=== PATIENT | female | born 1990 | race African-American/Black ===

== ENCOUNTER 2017-10-14 09:21 | Emergency (ER) | payer MEDICAID, SELFPAY ==
--- NOTE | 2017-10-14 11:23 | RAD ---
TWO VIEW CHEST SERIES: COMPARISON: 11/01/11. CLINICAL HISTORY: Cough. FINDINGS: There is no evidence of consolidation. No discrete pneumothorax. Cardiac silhouette is normal in si ze. IMPRESSION: No focal consolidation. POS: [facility]
== END 2017-10-14 10:22 | disposition home or self-care (01) ==
LOC: ERS 09:21
DX: J06.9 Acute upper respiratory infection, unspecified (principal); I10 Essential (primary) hypertension; E03.9 Hypothyroidism, unspecified; D64.9 Anemia, unspecified; Z79.899 Other long term (current) drug therapy
CPT/HCPCS: 71046

== ENCOUNTER 2018-07-12 23:34 | Emergency (ER) | payer MEDICAID, SELFPAY ==
--- NOTE | 2018-07-13 07:58 | RAD ---
LEFT KNEE 4 VIEWS: History Left knee pain. FINDINGS/IMPRESSION: There are postop changes in the proximal tibia. No fracture, dislocation, or bony destruction is miguel ntified. POS: [facility]
== END 2018-07-13 01:09 | disposition home or self-care (01) ==
LOC: ERS 23:34
DX: M25.562 Pain in left knee (principal); D64.9 Anemia, unspecified; E03.9 Hypothyroidism, unspecified; I10 Essential (primary) hypertension

== ENCOUNTER 2019-03-24 20:31 | Emergency (ER) | payer SELFPAY ==
[2019-03-24] MEDS ORDERED: Bicillin LA 1.2 MILLION UNITS/2 ML SYRINGE ONE (21:50)
[2019-03-24] MEDS ORDERED: Acetaminophen 500 MG TAB ONE (21:50)
== END 2019-03-24 22:00 | disposition home or self-care (01) ==
LOC: ERS 20:31
DX: J02.9 Acute pharyngitis, unspecified (principal); D64.9 Anemia, unspecified; E03.9 Hypothyroidism, unspecified; I10 Essential (primary) hypertension; Z79.899 Other long term (current) drug therapy
CPT/HCPCS: 87081; 87430; 96372; J0561

== ENCOUNTER 2019-04-02 18:00 | Emergency (ER) | payer SELFPAY ==
[2019-04-02] MEDS ORDERED: Ketorolac Tromethamine 60 MG/2 ML VIAL ONE (18:22)
== END 2019-04-02 18:44 | disposition home or self-care (01) ==
LOC: ERS 18:00
DX: K04.7 Periapical abscess without sinus (principal); E03.9 Hypothyroidism, unspecified; I10 Essential (primary) hypertension; D64.9 Anemia, unspecified; Z79.899 Other long term (current) drug therapy
CPT/HCPCS: 96372; J1885

== ENCOUNTER 2019-04-27 13:59 | Emergency (ER) | payer SELFPAY ==
[2019-04-27] MEDS ORDERED: Mag-Al 1200 mg/1200 mg/30 ML UDCUP ONE (14:42)
[2019-04-27] MEDS ORDERED: Lidocaine Viscous Sol 2% 15 ml UD Cup ONE (14:42)
[2019-04-27 15:06] LABS: Hemoglobin 10.7 g/dL (12.0-16.0); Mean Corpuscular HGB CONC 29.8 g/dL (32.0-36.0); Mean Corpuscular Hemoglobin 21.1 pg (27.0-31.0); Mean Corpuscular Volume 70.6 fL (78.0-98.0); Platelet Count 320 thou/uL (130-400); RBC Distribution Width 17.7 % (11.5-14.5); Red Blood Cell (RBC) Count 5.06 mill/uL (4.20-5.40); White Blood Cell (WBC) Count 9.9 thou/uL (4.8-10.8)
[2019-04-27 15:19] LABS: BHCG - Serum Negative (NEGATIVE); Pregs Control Background? CLEAR/WHITE (CLR/WHITE); Pregs Control Bar Appear? YES (CONTROL BAR)
[2019-04-27 15:22] LABS: ALT (SGPT) 13 U/L (8-55); AST (SGOT) 12 U/L (5-34); Albumin 3.8 g/dL (3.5-5.0); Alkaline Phosphatase 62 U/L (40-150); Anion Gap 10 mmol/L (10-20); BUN (Urea Nitrogen) 9 mg/dL (7.0-18.7); Bilirubin, Total 0.8 mg/dL (0.2-1.2); Calc. Creatinine Clearance 0 mL/min (70-130); Calcium 9.4 mg/dL (7.8-10.44); Carbon Dioxide 28 mmol/L (22-29); Chloride 104 mmol/L (98-107); Estimated GFR-MDRD Greater than 90; Globulin 4.1 g/dL (2.4-3.5); Glucose 85 mg/dL (70-105); Lipase 18 U/L (8-78); Potassium 3.4 mmol/L (3.5-5.1); Protein, Total 7.9 g/dL (6.0-8.3); Sodium 139 mmol/L (136-145)
[2019-04-27 15:27] LABS: #Eosinphils 0.1 thou/uL (0.0-0.7); #Lymphocytes 2.4 thou/uL (1.20-3.40); #Monocytes 0.8 thou/uL (0.11-0.59); #Neutrophils 6.5 thou/uL (1.40-6.50); %Basophils 0.4 % (0.0-1.0); %Eosinophils 1.5 % (0.0-10.0); %Lymphocytes 24.1 % (21.0-51.0); %Monocytes 8.3 % (0.0-10.0); %Neutrophils 65.7 % (42.0-75.0); Anisocytosis SLIGHT = 6-15 cells (100X) (0-5/hpf); Hypochromia SLIGHT = 6-15 cells (100X) (0-5/hpf); MDiff Complete? YES; Microcytosis SLIGHT = 6-15 cells (100X) (0-5/hpf); Platelet Morphology Comment Appears Adequate
[2019-04-27 16:47] LABS: Bilirubin Negative (Negative); Blood, Urine 3+ (Negative); Clarity Turbid (Clear); Glucose, Urine (Dipstick) Normal (Negative); Leukocyte 75 Leu/uL (Negative); Nitrite Negative (Negative); Protein, Urine (Dipstick) 30 mg/dL (Neg-Trace); RBC/HPF Greater than 50 HPF (0-3)
[2019-04-27 16:56] LABS: Bacteria/HPF 2+ HPF (None Seen)
== END 2019-04-27 16:17 | disposition home or self-care (01) ==
LOC: ERS 13:59
DX: K20.9 Esophagitis, unspecified (principal); D64.9 Anemia, unspecified; E03.9 Hypothyroidism, unspecified; I10 Essential (primary) hypertension; Z79.899 Other long term (current) drug therapy
CPT/HCPCS: 36415; 80053; 81003; 81015; 83690; 84703; 85025; 87077; 87086; 99284

== ENCOUNTER 2019-09-10 13:13 | Outpatient (CLI) | payer MEDICAID ==
--- NOTE | 2019-09-10 13:53 | RAD ---
EXAM: Chest 2 views: HISTORY: Dyspnea COMPARISON: 10/14/2017 FINDINGS: There is a normal-sized cardiomediastinal silhouette. There is no evidence of consolidation, mass, or pleural effusion. The bones are unremarkable. IMPRESSION: No evidence of acute cardiopulmonary disease
== END 2019-09-10 13:14 | disposition home or self-care (01) ==
LOC: BICRAD 13:13
PROVIDERS: ATTEND Internal Medicine
DX: R06.00 Dyspnea, unspecified (principal)
CPT/HCPCS: 71046

== ENCOUNTER 2019-10-28 15:04 | Outpatient (CLI) | payer OTHER ==
--- NOTE | 2019-10-28 15:21 | RAD ---
CHEST 2 VIEWS: Date: 10/28/2019 HISTORY: Dyspnea. COMPARISON: 09/10/2019. FINDINGS: Exam is somewhat limited by very large body habitus. Heart size is normal. The lungs are clear. IMPRESSION: No significant acute intrathoracic disease. Stable from prior study. POS: [facility]
== END 2019-10-28 15:05 | disposition home or self-care (01) ==
LOC: RAD 15:04
PROVIDERS: ATTEND Internal Medicine Pulmonary Disease
DX: R06.00 Dyspnea, unspecified (principal)
CPT/HCPCS: 71046

== ENCOUNTER 2020-04-29 06:18 | Outpatient (CLI) | payer OTHER ==
[2020-05-01 11:45] LABS: SARS-CoV-2 MS2 Positive; SARS-CoV-2 N Gene Negative; SARS-CoV-2 S Gene Negative; SARS-CoV-2 orf1ab Negative
== END 2020-04-29 06:19 | disposition home or self-care (01) ==
LOC: LABBT 06:18
PROVIDERS: ATTEND Internal Medicine
DX: Z01.812 Encounter for preprocedural laboratory examination (principal); Z11.59 Encounter for screening for other viral diseases; E66.01 Morbid (severe) obesity due to excess calories; K21.0 Gastro-esophageal reflux disease with esophagitis; D64.9 Anemia, unspecified
CPT/HCPCS: 87635; U0003

== ENCOUNTER 2020-05-04 08:05 | Day surgery (SDC) | payer OTHER ==
[2020-04-27 11:37] VITALS: BMI 84.1
[2020-05-04] MEDS ORDERED: Lidocaine 1% PF 5 ML VIAL ONE (09:55)
[2020-05-04] MEDS ORDERED: PROPOFOL 200 MG/20 ML VIAL ONE (09:55)
--- NOTE | 2020-05-04 11:41 | OP ---
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 PROCEDURE: Esophagogastroduodenoscopy, diagnostic. INDICATIONS: 1. Gastroesophageal reflux disease, mild. 2. Morbid obesity. 3. Chronic anemia. 4. Preoperative assessment prior to planned bariatric surgery. MEDICATIONS: See Anesthesia record. FINDINGS: After discussion of the risks, benefits, and alternatives of the procedure, informed consent was obtained and witnessed. Pre-endoscopic cardiopulmonary examination was satisfactory. Time-out was performed before sedation was achieved. Sedation was achieved with Anesthesia assistance in the endoscopy unit. A Pentax adult upper endoscope was placed into the oropharynx and passed through the cricopharyngeus under direct visualization. The esophageal mucosa appeared normal throughout with a normal-appearing Z-line at 38 cm from the incisors. The endoscope was advanced into the stomach. Forward and retroflexed views of the entire gastric mucosa were obtained. The gastric mucosa appeared normal throughout in forward and retroflexed views. The endoscope was advanced through the pylorus and into the first and second portions of the duodenum, which also appeared normal. The upper endoscope was then completely withdrawn and the patient allowed to recover. The patient tolerated the procedure well. There were no immediate postprocedure complications. IMPRESSION: 1. Normal esophagogastroduodenoscopy. 2. Regular Z-line at 38 cm from the incisors. RECOMMENDATIONS: 1. Follow up with Dr. Hardin and with [facility], as already planned. 2. She can follow up with me in the GI Clinic as needed. Job ID: [id number]
== END 2020-05-04 11:30 | disposition home or self-care (01) ==
LOC: SDC 08:05
PROVIDERS: ATTEND Internal Medicine
PROC: 0DJ08ZZ Inspection of Upper Intestinal Tract, Via Natural or Artificial Opening Endoscopic (ICD-10-PCS; principal; 2020-05-04)
DX: E66.01 Morbid (severe) obesity due to excess calories (principal); K21.9 Gastro-esophageal reflux disease without esophagitis; D64.9 Anemia, unspecified; I10 Essential (primary) hypertension; E07.9 Disorder of thyroid, unspecified; Z68.45 Body mass index [BMI] 70 or greater, adult; Z79.899 Other long term (current) drug therapy; Z87.891 Personal history of nicotine dependence
CPT/HCPCS: J2704

== ENCOUNTER 2020-05-06 14:37 | Outpatient (CLI) | payer OTHER ==
--- NOTE | 2020-05-06 15:13 | RAD ---
RIGHT KNEE 2 VIEWS: Date: 05/06/2020 HISTORY: Right knee pain. FINDINGS/IMPRESSION: No fracture, dislocation, or bony destruction seen. POS: [facility]
--- NOTE | 2020-05-06 15:14 | RAD ---
LEFT KNEE 2 VIEWS: Date; 05/06/2020 HISTORY: Left knee pain. FINDINGS/IMPRESSION: Comparison made to exam of 07/13/2018. Postop changes in the proximal tibia are again seen. No fracture, dislocation, or bony destruction id entified. POS: [facility]
== END 2020-05-06 14:38 | disposition home or self-care (01) ==
LOC: BICRAD 14:37
PROVIDERS: ATTEND Internal Medicine
DX: M25.561 Pain in right knee (principal); M25.562 Pain in left knee; Z98.890 Other specified postprocedural states

== ENCOUNTER 2020-07-21 08:06 | Outpatient (CLI) | payer OTHER ==
--- NOTE | 2020-07-21 09:16 | ULT ---
Sonogram abdomen complete HISTORY: Upper abdomen pain. FINDINGS: Gallbladder is decompressed around multiple echogenic shadowing stones. Resultant borderlin e wall thickness of 0.5 cm. Common duct is 0.6 cm. Liver unremarkable without focal mass or intrahepatic biliary dilatation. Patient was reportedly not tender over the gallbladder fossa at the time of the exam. No free fluid. The spleen, kidneys, and visualized portions of the abdominal aorta and IVC have a normal appearance. Pancreas mostly obscured. IMPRESSION : Cholelithiasis. No evidence of acute biliary obstruction.
== END 2020-07-21 08:07 | disposition home or self-care (01) ==
LOC: SCSULT 08:06
PROVIDERS: ATTEND Internal Medicine
DX: R10.13 Epigastric pain (principal); D50.9 Iron deficiency anemia, unspecified; E66.01 Morbid (severe) obesity due to excess calories; K80.20 Calculus of gallbladder without cholecystitis without obstruction; Z68.41 Body mass index [BMI] 40.0-44.9, adult
CPT/HCPCS: 93975

== ENCOUNTER 2020-07-29 08:03 | Outpatient (CLI) | payer OTHER ==
[2020-07-29 16:55] LABS: SARS-CoV-2 MS2 Positive; SARS-CoV-2 N Gene Negative; SARS-CoV-2 S Gene Negative; SARS-CoV-2 by NAA Not Detected (NotDetected); SARS-CoV-2 orf1ab Negative
== END 2020-07-29 08:04 | disposition home or self-care (01) ==
LOC: LABBT 08:03
PROVIDERS: ATTEND Internal Medicine
DX: Z20.828 Contact with and (suspected) exposure to other viral communicable diseases (principal)
CPT/HCPCS: 87635; U0003

== ENCOUNTER 2020-08-03 06:21 | Day surgery (SDC) | payer OTHER ==
[2020-07-31 10:13] VITALS: BMI 83.7
[2020-08-03] MEDS ORDERED: Lidocaine 1% PF 5 ML VIAL ONE (09:51)
[2020-08-03] MEDS ORDERED: PROPOFOL 200 MG/20 ML VIAL ONE (09:51)
--- NOTE | 2020-08-03 10:11 | OP ---
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 PROCEDURES PERFORMED: 1. Esophagogastroduodenoscopy with biopsies. 2. Colonoscopy, diagnostic. INDICATIONS: 1. Iron-deficiency anemia. 2. Epigastric pain. 3. Morbid obesity with BMI of 82.4. MEDICATIONS: See Anesthesia record. FINDINGS: After discussion of the risks, benefits, and alternatives of the procedure, informed consent was obtained and witnessed. Pre-endoscopic cardiopulmonary examination was satisfactory. Time-out was performed before sedation was achieved. Sedation was achieved with Anesthesia assistance in the endoscopy unit. A Pentax adult upper endoscope was placed into the oropharynx and passed through the cricopharyngeus under direct visualization. The esophageal mucosa appeared normal throughout with a normal-appearing Z-line. The endoscope was advanced into the stomach. Forward and retroflexed views of the entire gastric mucosa were obtained. There was some patchy mild gastritis involving the gastric antrum and body, characterized by erythema, and friability. There were no erosions or ulcerations noted. This was mild in appearance, but is new since her recent exam in April. Biopsies were obtained from the gastric antrum and body to rule out H pylori infection. The endoscope was advanced through the pylorus and into the first and second portions of the duodenum, which appeared normal. The upper endoscope was completely withdrawn and the patient was repositioned. Digital rectal exam was performed, which was unremarkable. A Pentax adult colonoscope was inserted into the anus and passed forward to the cecum in the usual fashion. The cecal base was identified by the appendiceal orifice as well as the ileocecal valve. The terminal ileum was intubated and the ileal mucosa appeared normal. The colonoscope was slowly withdrawn in a gradual and circumferential manner with careful examination of the entire colonic mucosa. The quality of the prep was good. The colon was completely normal throughout. Retroflexion in the rectum was normal. The colonoscope was completely withdrawn and the patient allowed to recover. The patient tolerated the procedure well. There were no immediate postprocedure complications. IMPRESSION: 1. Mild gastritis, biopsied to rule out Helicobacter pylori. 2. Otherwise normal esophagogastroduodenoscopy. 3. Normal colonoscopy to the terminal ileum. RECOMMENDATIONS: 1. Pantoprazole 40 mg by mouth daily. 2. Follow up results of gastric biopsies. 3. Follow up in GI Clinic in 1 month. 4. Repeat colonoscopy for screening at age 47. Job ID: [id number]
== END 2020-08-03 09:55 | disposition home or self-care (01) ==
LOC: SDC 06:21
PROVIDERS: ATTEND Internal Medicine
PROC: 0DB68ZX Excision of Stomach, Via Natural or Artificial Opening Endoscopic, Diagnostic (ICD-10-PCS; principal; 2020-08-03)
PROC: 0DJD8ZZ Inspection of Lower Intestinal Tract, Via Natural or Artificial Opening Endoscopic (ICD-10-PCS; principal; 2020-08-03)
DX: D50.9 Iron deficiency anemia, unspecified (principal); K29.70 Gastritis, unspecified, without bleeding; K21.9 Gastro-esophageal reflux disease without esophagitis; E66.01 Morbid (severe) obesity due to excess calories; I10 Essential (primary) hypertension; Z68.45 Body mass index [BMI] 70 or greater, adult; Z79.899 Other long term (current) drug therapy; Z87.891 Personal history of nicotine dependence
CPT/HCPCS: 88305; 88312; J2704

== ENCOUNTER 2020-09-30 12:21 | Emergency (ER) | payer OTHER ==
[2020-09-30] MEDS ORDERED: traMADol HCl 50 MG TAB ONE (13:28)
== END 2020-09-30 13:51 | disposition home or self-care (01) ==
LOC: ERS 12:21
DX: K02.9 Dental caries, unspecified (principal); E03.9 Hypothyroidism, unspecified; K21.9 Gastro-esophageal reflux disease without esophagitis; D50.9 Iron deficiency anemia, unspecified; I10 Essential (primary) hypertension; J45.909 Unspecified asthma, uncomplicated; Z79.51 Long term (current) use of inhaled steroids; Z79.899 Other long term (current) drug therapy
CPT/HCPCS: 99282

== ENCOUNTER 2020-10-26 13:42 | Outpatient (CLI) | payer OTHER ==
--- NOTE | 2020-10-26 14:10 | RAD ---
CHEST 2 VIEWS: Date: 10/26/2020 HISTORY: Dyspnea and cough. COMPARISON: 10/28/2019. FINDINGS: Large body habitus lowers the sensitivity of this study. Heart size is within normal limits. There ar e minimal nonspecific increased bronchovascular markings somewhat in the perihilar regions. No conflu ent pneumonia, overt edema, or pleural effusion. IMPRESSION: Minimal nonspecific increased markings in the perihilar regions, nonspecific. No evidence for pneumon ia. If patient has persistent or worsening symptoms, short-term follow-up study should be considered. POS: [facility]
--- NOTE | 2020-10-26 14:10 | RAD ---
3 views of the paranasal sinuses: 10/26/2020 COMPARISON: None HISTORY: Cough, sinusitis FINDINGS: The frontal sinuses and maxillary sinuses appear well-aerated. Sphenoid sinuses and ethmoid air cells appear grossly unremarkable on the lateral view. IMPRESSION: No significant paranasal sinus opacification.
== END 2020-10-26 13:43 | disposition home or self-care (01) ==
LOC: BICRAD 13:42
PROVIDERS: ATTEND Internal Medicine
DX: J32.9 Chronic sinusitis, unspecified (principal); R06.00 Dyspnea, unspecified
CPT/HCPCS: 70220; 71046

== ENCOUNTER 2021-01-18 22:45 | Emergency (ER) | payer OTHER ==
[2021-01-19 05:05] LABS: SARS-CoV-2 PCR by NAA Not Detected (NotDetected)
== END 2021-01-18 23:50 | disposition home or self-care (01) ==
LOC: ERS 22:45
DX: J02.9 Acute pharyngitis, unspecified (principal); R05 Cough; E03.9 Hypothyroidism, unspecified; K21.9 Gastro-esophageal reflux disease without esophagitis; D50.9 Iron deficiency anemia, unspecified; I10 Essential (primary) hypertension; J45.909 Unspecified asthma, uncomplicated; Z20.822 Contact with and (suspected) exposure to COVID-19; Z79.899 Other long term (current) drug therapy
CPT/HCPCS: 87635; 99283; U0003; U0005

== ENCOUNTER 2021-04-30 15:30 | Emergency (ER) | payer OTHER ==
[2021-04-30] MEDS ORDERED: Ibuprofen 200 MG TAB ONE (18:27)
== END 2021-04-30 18:45 | disposition home or self-care (01) ==
LOC: ERS 15:30
DX: R60.0 Localized edema (principal); E03.9 Hypothyroidism, unspecified; K21.9 Gastro-esophageal reflux disease without esophagitis; D50.9 Iron deficiency anemia, unspecified; I10 Essential (primary) hypertension; Z79.899 Other long term (current) drug therapy
CPT/HCPCS: 99283

== ENCOUNTER 2021-06-14 16:35 | Emergency (ER) | payer OTHER ==
[2021-06-15 13:56] LABS: SARS-CoV-2 PCR by NAA Not Detected (NotDetected)
== END 2021-06-14 18:40 | disposition home or self-care (01) ==
LOC: ERS 16:35
DX: R19.7 Diarrhea, unspecified (principal); R50.9 Fever, unspecified; Z20.822 Contact with and (suspected) exposure to COVID-19; E03.9 Hypothyroidism, unspecified; K21.9 Gastro-esophageal reflux disease without esophagitis; D50.9 Iron deficiency anemia, unspecified; I10 Essential (primary) hypertension; J45.909 Unspecified asthma, uncomplicated
CPT/HCPCS: 99284; U0003; U0005

== ENCOUNTER 2022-02-14 20:12 | Emergency (ER) | payer OTHER | END 2022-02-14 22:23 | disposition home or self-care (01) | LOC: ERS 20:12 | DX: K08.89 Other specified disorders of teeth and supporting structures (principal) | CPT/HCPCS: 99282 ==

== ENCOUNTER 2022-08-05 06:21 | Emergency (ER) | payer OTHER ==
[2022-08-05] MEDS ORDERED: Ketorolac Tromethamine 30 MG/ML VIAL ONE (06:44)
== END 2022-08-05 07:06 | disposition home or self-care (01) ==
LOC: ERS 06:21
DX: M54.42 Lumbago with sciatica, left side (principal); K02.9 Dental caries, unspecified; E03.9 Hypothyroidism, unspecified; I10 Essential (primary) hypertension; Z79.899 Other long term (current) drug therapy
CPT/HCPCS: 96372; 99283; J1885

== ENCOUNTER 2022-10-16 06:41 | Emergency (ER) | payer OTHER ==
[2022-10-16 09:00] LABS: #Basophils 0.1 thou/uL (0.0-0.2); #Eosinphils 0.2 thou/uL (0.0-0.7); #Lymphocytes 2.2 thou/uL (1.20-3.40); #Monocytes 0.5 thou/uL (0.11-0.59); #Neutrophils 3.6 thou/uL (1.40-6.50); %Eosinophils 2.5 % (0.0-10.0); %Lymphocytes 34.3 % (21.0-51.0); %Monocytes 7.1 % (0.0-10.0); %Neutrophils 55.1 % (42.0-75.0); Hemoglobin 12.5 g/dL (12.0-16.0); Mean Corpuscular HGB CONC 31.2 g/dL (32.0-36.0); Mean Corpuscular Hemoglobin 24.9 pg (27.0-31.0); Mean Corpuscular Volume 79.8 fl (78.0-98.0); Mean Platelet Volume 9.2 fL (7.4-10.4); Platelet Count 275 10x3/uL (130-400); RBC Distribution Width 16.7 % (11.5-14.5); Red Blood Cell (RBC) Count 5.03 mill/uL (4.20-5.40); White Blood Cell (WBC) Count 6.5 10x3/uL (4.8-10.8)
[2022-10-16] MEDS ORDERED: Lidocaine Viscous Sol 2% 15 ml UD Cup ONE (09:04)
[2022-10-16] MEDS ORDERED: Mag-Al 1200 mg/1200 mg/30 ML UDCUP ONE (09:05)
[2022-10-16 10:23] LABS: Bacteria/HPF 4+ HPF (None Seen); Bilirubin Negative (Negative); Blood, Urine Negative (Negative); Clarity Turbid (Clear); Glucose, Urine (Dipstick) Normal (Negative); Ketone, Urine Negative (Negative); Leukocyte 75 Leu/uL (Negative); Nitrite Negative (Negative); Protein, Urine (Dipstick) 20 mg/dL (Neg-Trace); RBC/HPF 0-3 HPF (0-3); Specific Gravity, Urine 1.026 (1.002-1.036); Squamous Epithelial 21-50 HPF (0-3); Urobilinogen Normal mg/dL (Less than 2)
[2022-10-16 10:24] LABS: Pregnancy Test - Urine (BHCG) Negative (Negative); Pregu Control Background? CLEAR/WHITE (CLR/WHITE); Pregu Control Bar Appear? YES (CONTROL BAR); Specific Gravity 1.026 (1.002-1.036)
[2022-10-16 10:26] LABS: Albumin 4.2 g/dL (3.5-5.0)
[2022-10-16 10:27] LABS: Chloride 108 mmol/L (98-107); Potassium 3.9 mmol/L (3.5-5.1); Sodium 140 mmol/L (136-145)
[2022-10-16 10:28] LABS: Calcium 9.6 mg/dL (7.8-10.44); Glucose 106 mg/dL (70-105)
[2022-10-16 10:29] LABS: Globulin 4.2 g/dL (2.4-3.5); Protein, Total 8.4 g/dL (6.0-8.3)
[2022-10-16 10:30] LABS: Anion Gap 15 mmol/L (10-20); Bilirubin, Total 0.3 mg/dL (0.2-1.2); Carbon Dioxide 21 mmol/L (22-29)
[2022-10-16 10:31] LABS: Alkaline Phosphatase 52 U/L (40-110)
[2022-10-16 10:32] LABS: Calc. Creatinine Clearance 0 mL/min (70-130); Estimated GFR 95
[2022-10-16 10:33] LABS: BUN (Urea Nitrogen) 13 mg/dL (7.0-18.7)
[2022-10-16 10:34] LABS: ALT (SGPT) 25 U/L (8-55); AST (SGOT) 18 U/L (5-34)
[2022-10-16] MEDS ORDERED: Ketorolac Tromethamine 30 MG/ML VIAL ONE (10:38)
== END 2022-10-16 11:08 | disposition home or self-care (01) ==
LOC: ERS 06:41
DX: N39.0 Urinary tract infection, site not specified (principal)
CPT/HCPCS: 36415; 80053; 81003; 81015; 81025; 85025; 87086; 96372; 99284; J1885

== ENCOUNTER 2024-02-05 15:45 | Emergency (ER) | payer OTHER ==
[2024-02-05 18:07] LABS: #Basophils Less than 0.03 10x3/uL (0.0-0.2); %Basophils 0.3 % (0.0-1.0); %Lymphocytes 22.4 % (21.0-51.0); %Neutrophils 67.1 % (42.0-75.0); Hematocrit 39.1 % (36.0-47.0); Hemoglobin 12.4 g/dL (12.0-16.0); Mean Corpuscular HGB CONC 31.7 g/dL (32.0-36.0); Mean Corpuscular Hemoglobin 24.6 pg (27.0-31.0); Mean Corpuscular Volume 77.6 fL (78.0-98.0); Mean Platelet Volume 9.9 fL (7.4-10.4); Platelet Count 303 10x3/uL (130-400); RBC Distribution Width 16.3 % (11.5-14.5); Red Blood Cell (RBC) Count 5.04 mill/uL (4.20-5.40)
[2024-02-05 18:56] LABS: Anion Gap 12 mmol/L (10-20); Globulin 4.4 g/dL (2.4-3.5)
[2024-02-05 19:01] LABS: ALT (SGPT) 15 U/L (8-55); AST (SGOT) 16 U/L (5-34); Albumin 3.3 g/dL (3.5-5.0); Alkaline Phosphatase 53 U/L (40-110); BUN (Urea Nitrogen) 16 mg/dL (7.0-18.7); Bilirubin, Total 0.4 mg/dL (0.2-1.2); Calc. Creatinine Clearance 0 mL/min (70-130); Calcium 9.7 mg/dL (7.8-10.44); Carbon Dioxide 24 mmol/L (22-29); Chloride 105 mmol/L (98-107); Estimated GFR 97; Glucose 92 mg/dL (70-105); Potassium 3.7 mmol/L (3.5-5.1); Protein, Total 7.7 g/dL (6.0-8.3); Sodium 137 mmol/L (136-145)
== END 2024-02-05 20:37 | disposition home or self-care (01) ==
LOC: ERS 15:45
DX: L03.311 Cellulitis of abdominal wall (principal); L25.9 Unspecified contact dermatitis, unspecified cause; I10 Essential (primary) hypertension; E03.9 Hypothyroidism, unspecified; Z23 Encounter for immunization
CPT/HCPCS: 36415; 80053; 83605; 85025; 90471; 90715; J7512

== ENCOUNTER 2024-03-20 00:40 | Emergency (ER) | payer OTHER | END 2024-03-20 01:41 | disposition home or self-care (01) | LOC: ERS 00:40 | DX: K08.89 Other specified disorders of teeth and supporting structures (principal); I10 Essential (primary) hypertension | CPT/HCPCS: 99283 ==

== ENCOUNTER 2024-03-30 16:33 | Emergency (ER) | payer OTHER | END 2024-03-30 19:00 | disposition home or self-care (01) | LOC: ERS 16:33 | DX: R05.1 Acute cough (principal); R06.2 Wheezing; I10 Essential (primary) hypertension; E03.9 Hypothyroidism, unspecified; Z79.899 Other long term (current) drug therapy | CPT/HCPCS: 99284 ==

== ENCOUNTER 2024-04-23 13:37 | Emergency (ER) | payer OTHER | END 2024-04-23 14:50 | disposition home or self-care (01) | LOC: ERS 13:37 | DX: K04.7 Periapical abscess without sinus (principal) | CPT/HCPCS: 99282 ==

== ENCOUNTER 2024-08-19 14:23 | Emergency (ER) | payer OTHER | END 2024-08-19 16:45 | disposition home or self-care (01) | LOC: ERS 14:23 | DX: J06.9 Acute upper respiratory infection, unspecified (principal) | CPT/HCPCS: 87081; 87428; 87430; 99283 ==